=== PATIENT | female | born 1935 | race Two or more races ===

== ENCOUNTER 2021-01-31 10:45 | Inpatient (IN) | payer MEDICAID ==
[~2021-01-31] VITALS: Ht 157.5 cm; Wt 59.0 kg
[2021-01-31] MEDS ORDERED: AZITHROMYCIN 500MG/ 250ML 250 ML IV ONE (11:45)
[2021-01-31 11:54] LABS: Basophils # (auto) 0.1 10 ^3/uL (0-0.2); Lymphocytes # (auto) 1.1 10 ^3/uL (0.4-5.4)
[2021-01-31 11:57] LABS: Basophils % (auto) 0.8 % (0.0-2.0); Eosinophils # (auto) 0 10 ^3/uL (0-0.8); Eosinophils % (auto) 0.3 % (0.0-7.0); Hematocrit 32.6 % (36.0-46.0); Lymphocytes % (auto) 7.4 % (10.0-50.0); Mean Corpuscular Hemoglobin 26.9 pg (28.0-32.0); Mean Corpuscular Hgb Conc. 33.9 g/dL (32.0-36.0); Mean Corpuscular Volume 79.4 fL (80.0-100.0); Monocytes # (auto) 1.4 10 ^3/uL (0-1.3); Monocytes % (auto) 9.5 % (0.0-12.0); Neutrophils # (auto) 12.5 10 ^3/uL (1.6-8.6); Platelet Count (auto) 502 10^3/uL (140-450); Red Blood Cells 4.11 10^6/uL (4.0-5.20); Red Cell Distribution Width 15.3 % (11.8-14.3); White Blood Cell 15.3 10^3/uL (4.4-10.8)
[2021-01-31 12:15] LABS: Albumin 2.6 g/dL (3.4-5.0); Anion Gap 9 (5-15); Blood Urea Nitrogen 21 mg/dL (7-18); Calcium 9.9 mg/dL (8.5-10.1); Carbon Dioxide 27 mmol/L (21-32); Chloride 94 mmol/L (98-107); Sodium 130 mmol/L (136-145)
[2021-01-31 12:23] LABS: Alanine Aminotransferase 19 U/L (13-56); Alkaline Phosphatase 107 U/L (45-117); Aspartate Aminotransferase 23 U/L (15-37); BUN/Creatinine Ratio 36.8; Bilirubin, Total 0.5 mg/dL (0.2-1.0); GFR African American 130 mL/min; GFR Non-African American 108 mL/min; Glucose 109 mg/dL (74-106); Total Protein 7.7 g/dL (6.4-8.2)
[2021-01-31] MEDS ORDERED: ZINC SULFATE 220mg CAP or TAB PO ONE (13:15)
[2021-01-31] MEDS ORDERED: methylPREDNISolone SOD SUCC 125 MG/2 ML VL IV ONE (13:15)
[2021-01-31] MEDS ORDERED: ONDANSETRON HCL 4 MG/2 ML VIAL IV PRN (13:30)
[2021-01-31] MEDS ORDERED: MORPHINE SULF INJ 2 MG/ML SYRINGE 1ML IV PRN (13:30)
[2021-01-31] MEDS ORDERED: NITROGLYCERIN 0.4 MG SL TAB SL PRN (13:30)
[2021-01-31] MEDS ORDERED: PNEUMOCOCCAL VACC POLYS 25 MCG/0.5 ML VIAL IM ONE (18:30)
[2021-01-31] MEDS ORDERED: ENAL2.5T7 PO (18:30)
[2021-01-31] MEDS ORDERED: HYDR25TA4 PO (18:30)
[2021-01-31] MEDS ORDERED: INFLUENZA QUAD 2020-2021 0.5 ML SYRG IM ONE (18:30)
[2021-01-31] MEDS ORDERED: guaiFENesin 200 MG/10 ML UD PO PRN (21:00)
[2021-01-31] MEDS: ASCORBIC ACID 500 MG TAB PO SCH (21:25)
[2021-01-31] MEDS: ACETAMINOPHEN 325 MG TAB PO PRN (21:25)
[2021-01-31 22:00] VITALS: BP 124/75
[2021-02-01 05:20] VITALS: BP 122/75
[2021-02-01 06:48] LABS: Basophils # (auto) 0 10 ^3/uL (0-0.2); Basophils % (auto) 0.1 % (0.0-2.0); Eosinophils # (auto) 0 10 ^3/uL (0-0.8); Lymphocytes # (auto) 0.9 10 ^3/uL (0.4-5.4); Neutrophils # (auto) 10.8 10 ^3/uL (1.6-8.6); White Blood Cell 12.4 10^3/uL (4.4-10.8)
[2021-02-01 06:50] LABS: Hematocrit 29.9 % (36.0-46.0); Lymphocytes % (auto) 7.2 % (10.0-50.0); Mean Corpuscular Hemoglobin 26.3 pg (28.0-32.0); Mean Corpuscular Hgb Conc. 33.5 g/dL (32.0-36.0); Mean Corpuscular Volume 78.6 fL (80.0-100.0); Monocytes # (auto) 0.6 10 ^3/uL (0-1.3); Monocytes % (auto) 5.2 % (0.0-12.0); Neutrophils % (auto) 87.5 % (37.0-80.0); Platelet Count (auto) 453 10^3/uL (140-450); Red Blood Cells 3.81 10^6/uL (4.0-5.20); Red Cell Distribution Width 15.4 % (11.8-14.3)
[2021-02-01 07:08] LABS: Calcium 9.3 mg/dL (8.5-10.1); Magnesium 2.4 mg/dL (1.6-2.6); Potassium 4.1 mmol/L (3.5-5.1)
[2021-02-01 07:10] LABS: BUN/Creatinine Ratio 53.2
[2021-02-01 09:00] VITALS: BP 133/71
[2021-02-01] MEDS ORDERED: DexAMETHasone SOD PHOS 4 MG/1ML SDV INJ IV SCH (10:00)
[2021-02-01 10:50] LABS: INR 1.09 (0.9-1.15)
[2021-02-01] MEDS: AZITHROMYCIN 500MG/ 250ML 250 ML IV SCH (11:41)
[2021-02-01] MEDS: ZINC SULFATE 220mg CAP or TAB PO SCH (11:41)
[2021-02-01] MEDS: ASCORBIC ACID 500 MG TAB PO SCH ×2 (11:42→21:08)
[2021-02-01] MEDS: CHOLECALCIFEROL (VITD3) 2,000 UNIT CAP/TAB PO SCH (11:42)
[2021-02-01] MEDS: ENOXAPARIN SOD 40 MG/0.4 ML SYRINGE SC SCH (11:42)
[2021-02-01 12:50] VITALS: BP 129/78
[2021-02-01] MEDS: HYDROcodone-ACET 5/325MG TAB PO PRN (14:13)
[2021-02-01 14:14] LABS: Urine Bacteria FEW /hpf (None Seen); Urine Blood Negative /uL (Negative); Urine Specific Gravity 1.016 (1.001-1.035); Urine WBC 1 /hpf (0 - 5)
[2021-02-01 17:00] VITALS: BP 110/66
[2021-02-01] MEDS: ACETAMINOPHEN 325 MG TAB PO PRN (21:08)
[2021-02-01 22:00] VITALS: BP 121/72
[2021-02-01] MEDS ORDERED: LORazepam 2MG/ML-1ML VIAL IV PRN (22:45)
[2021-02-02 05:00] VITALS: BP 119/68
[2021-02-02 07:23] LABS: Cholesterol 120 mg/dL (< 200)
[2021-02-02 07:27] LABS: HDL Cholesterol 54 mg/dL (40-59); LDL Cholesterol 59 mg/dL (< 100); Triglycerides 90 mg/dL (< 150)
[2021-02-02] MEDS ORDERED: LIDOCAINE 2%HCL (LOCAL ANESTH.) INJ 20ML MDV ONE (08:32)
[2021-02-02 09:00] VITALS: BP 114/70
[2021-02-02] MEDS ORDERED: fentaNYL CITRATE 100 MCG/2 ML VL ONE (09:40)
[2021-02-02] MEDS: ENOXAPARIN SOD 40 MG/0.4 ML SYRINGE SC SCH (09:49)
[2021-02-02] MEDS: ASPirin-EC 81 mg tab PO SCH (09:50)
[2021-02-02] MEDS ORDERED: fentaNYL CITRATE 100 MCG/2 ML VL IV ONE (10:00)
[2021-02-02] MEDS: ZINC SULFATE 220mg CAP or TAB PO SCH (11:01)
[2021-02-02] MEDS: AZITHROMYCIN 500MG/ 250ML 250 ML IV SCH (11:01)
[2021-02-02] MEDS: CHOLECALCIFEROL (VITD3) 2,000 UNIT CAP/TAB PO SCH (11:02)
[2021-02-02] MEDS: ASCORBIC ACID 500 MG TAB PO SCH ×2 (11:02→21:11)
[2021-02-02 13:00] VITALS: BP 147/78
[2021-02-02 17:00] VITALS: BP 133/85
[2021-02-02] MEDS: ACETAMINOPHEN 325 MG TAB PO PRN (19:37)
[2021-02-02] MEDS: MORPHINE SULF INJ 2 MG/ML SYRINGE 1ML IV PRN (21:09)
[2021-02-02 22:00] VITALS: BP 127/72
[2021-02-02 23:34] LABS: Potassium 4.2 mmol/L (3.5-5.1)
[2021-02-03 05:00] VITALS: BP 122/72
[2021-02-03 08:00] VITALS: BP 124/66
[2021-02-03] MEDS: ZINC SULFATE 220mg CAP or TAB PO SCH (11:43)
[2021-02-03] MEDS: AZITHROMYCIN 500MG/ 250ML 250 ML IV SCH (11:43)
[2021-02-03] MEDS: CHOLECALCIFEROL (VITD3) 2,000 UNIT CAP/TAB PO SCH (11:44)
[2021-02-03] MEDS: ASPirin-EC 81 mg tab PO SCH (11:44)
[2021-02-03] MEDS: ASCORBIC ACID 500 MG TAB PO SCH ×2 (11:44→22:42)
[2021-02-03] MEDS: ENOXAPARIN SOD 40 MG/0.4 ML SYRINGE SC SCH (11:46)
[2021-02-03] MEDS: MORPHINE SULF INJ 2 MG/ML SYRINGE 1ML IV PRN (11:46)
[2021-02-03 12:00] VITALS: BP 130/75
[2021-02-03 16:00] VITALS: BP 131/78
[2021-02-03] MEDS: HYDROcodone-ACET 5/325MG TAB PO PRN (20:52)
[2021-02-03 22:00] VITALS: BP 115/69
[2021-02-04 05:00] VITALS: BP 147/80
[2021-02-04 09:00] VITALS: BP 118/71
[2021-02-04] MEDS: ASCORBIC ACID 500 MG TAB PO SCH (10:21)
[2021-02-04] MEDS: ZINC SULFATE 220mg CAP or TAB PO SCH (10:21)
[2021-02-04] MEDS: CHOLECALCIFEROL (VITD3) 2,000 UNIT CAP/TAB PO SCH (10:21)
[2021-02-04] MEDS: ASPirin-EC 81 mg tab PO SCH (10:21)
[2021-02-04] MEDS: ENOXAPARIN SOD 40 MG/0.4 ML SYRINGE SC SCH (10:21)
[2021-02-04] MEDS: AZITHROMYCIN 500MG/ 250ML 250 ML IV SCH (10:21)
[2021-02-04] MEDS: MORPHINE SULF INJ 2 MG/ML SYRINGE 1ML IV PRN (10:22)
[2021-02-04 13:00] VITALS: BP 118/67
[2021-02-04 16:10] VITALS: BP 118/67
[2021-02-04 17:00] VITALS: BP 120/62
== END 2021-02-04 17:55 | disposition home health service (06) | DRG 139 ==
LOC: ER 10:45 → TELE 13:21 → TELE-EAST 17:36
PROVIDERS: ADMIT Internal Medicine; ATTEND Internal Medicine
PROC: 0WB Anatomical Regions, General, Excision (ICD-10-PCS; principal; 2021-02-02)
DX: J18.9 Pneumonia, unspecified organism (principal); E88.09 Other disorders of plasma-protein metabolism, not elsewhere classified; C34.92 Malignant neoplasm of unspecified part of left bronchus or lung; E87.1 Hypo-osmolality and hyponatremia; F17.200 Nicotine dependence, unspecified, uncomplicated; D72.829 Elevated white blood cell count, unspecified; I10 Essential (primary) hypertension; J45.909 Unspecified asthma, uncomplicated; M19.90 Unspecified osteoarthritis, unspecified site; Z20.822 Contact with and (suspected) exposure to COVID-19; Z79.82 Long term (current) use of aspirin; Z79.899 Other long term (current) drug therapy; Z82.49 Family history of ischemic heart disease and other diseases of the circulatory system; M54.2 Cervicalgia; M25.512 Pain in left shoulder; G89.29 Other chronic pain; R59.0 Localized enlarged lymph nodes
CPT/HCPCS: 36415; 70450; 71046; 71250; 76881; 76942; 80048; 80053; 80061; 81001; 82728; 83605; 83735; 84132; 84484; 85025; 85610; 86141; 87040; 87426; 93005; 93306; 93886; 96365; 96375; 97116; G0378

== ENCOUNTER 2021-02-23 22:43 | Inpatient (IN) | payer MEDICAID ==
[~2021-02-23] VITALS: Ht 157.5 cm; Wt 62.6 kg
[~2021-02-23 22:43] MED LIST: ENAL2.5T7 PO; HYDR25TA4 PO
[2021-02-23] MEDS ORDERED: SODIUM CHLORIDE 0.9% 500 ML IV ONE (23:15)
[2021-02-23 23:26] LABS: Basophils # (auto) 0.1 10 ^3/uL (0-0.2); Hemoglobin 11.4 g/dL (12.2-16.2); Lymphocytes # (auto) 1.9 10 ^3/uL (0.4-5.4); Nucleated Red Blood Cells % 0.1 %
[2021-02-23 23:27] LABS: Basophils % (auto) 0.3 % (0.0-2.0); Eosinophils # (auto) 0.1 10 ^3/uL (0-0.8); Eosinophils % (auto) 0.7 % (0.0-7.0); Hematocrit 35.4 % (36.0-46.0); Lymphocytes % (auto) 8.5 % (10.0-50.0); Mean Corpuscular Hemoglobin 25.8 pg (28.0-32.0); Mean Corpuscular Hgb Conc. 32.2 g/dL (32.0-36.0); Monocytes # (auto) 0.7 10 ^3/uL (0-1.3); Monocytes % (auto) 3.1 % (0.0-12.0); Neutrophils # (auto) 19.8 10 ^3/uL (1.6-8.6); Neutrophils % (auto) 87.4 % (37.0-80.0); Red Blood Cells 4.42 10^6/uL (4.0-5.20); White Blood Cell 22.6 10^3/uL (4.4-10.8)
[2021-02-23] MEDS ORDERED: cefTRIAXone 1GM/50ML D5W 50 ML IV ONE (23:30)
[2021-02-23 23:41] LABS: INR 1.13 (0.9-1.15); Partial Thromboplastin Time 23.4 sec (23.0-31.2)
[2021-02-23 23:47] LABS: BUN/Creatinine Ratio 61.3; Calcium 9.9 mg/dL (8.5-10.1); Potassium 4.6 mmol/L (3.5-5.1)
[2021-02-23 23:50] LABS: Bilirubin, Total 0.5 mg/dL (0.2-1.0); Total Protein 7.4 g/dL (6.4-8.2)
[2021-02-23] MEDS ORDERED: MIDAZOLAM DRIP 50 mg/50mL 0 ML IV ONE (23:57)
[2021-02-23] MEDS ORDERED: ETOMIDATE (2MG/ML) 20ML VIAL IV ONE (23:58)
[2021-02-23] MEDS ORDERED: SUCCINYLCHOLINE CHLORIDE 20 MG/ML 10ML VIAL IV ONE (23:58)
[2021-02-24] VITALS (58 sets, daily range): BP systolic 88–128; BP diastolic 37–83
[2021-02-24] MEDS ORDERED: SODIUM CHLORIDE 0.9% 500 ML IV ONE ×2 (00:15)
[2021-02-24 00:32] LABS: Lactic Acid w/Reflex 6.4 mmol/L (0.4-2.0)
[2021-02-24] MEDS: NOREPINEPHRINE 8 MG/250ML KIT 250 ML IV SCH ×2 (00:47→03:59)
[2021-02-24] MEDS ORDERED: HYDROCORTISONE SOD SUCC 100 MG/2ML INJ VIAL IV ONE (01:00)
[2021-02-24] MEDS ORDERED: SODIUM CHLORIDE 0.9% 1,000 ML IV ONE (01:15)
[2021-02-24] MEDS ORDERED: VANCOMYCIN 1GM/250ML 250 ML IV ONE ×2 (01:30→05:00)
[2021-02-24] MEDS ORDERED: MORPHINE SULFATE 4 MG/ML SYR/VIAL IV ONE (04:00)
[2021-02-24] MEDS ORDERED: AMIODARONE HCL (50 MG/ ML) 3 ML VIAL IV ONE (04:43)
[2021-02-24] MEDS ORDERED: ALBUMIN 5% 250 ML IV ONE (04:45)
[2021-02-24] MEDS ORDERED: ONDANSETRON HCL 4 MG/2 ML VIAL IV PRN (04:45)
[2021-02-24] MEDS ORDERED: VANCOMYCIN PER PHARMACY 0 MG IV SCH (04:45)
[2021-02-24] MEDS ORDERED: NITROGLYCERIN 0.4 MG SL TAB SL PRN (04:45)
[2021-02-24] MEDS ORDERED: MORPHINE SULFATE INJECTION 2 MG/ML SYRG IV PRN (04:45)
[2021-02-24] MEDS ORDERED: ALBUTEROL SULF 2.5 MG/0.5ML(0.5%) NEB SOLN NEB PRN (04:45)
[2021-02-24] MEDS ORDERED: AMIODARONE HCL 150 MG in D5W 5% 100 ML IV ONE (04:45)
[2021-02-24] MEDS: PIPERACILLIN-TAZOB 3.375GM 100 ML IV SCH ×3 (06:00→18:06)
[2021-02-24] MEDS ORDERED: AMIODARONE 450mg/250ml AE 250 ML IV ONE (06:12)
[2021-02-24] MEDS ORDERED: AMIODARONE 450mg/250ml AE 250 ML IV SCH ×2 (06:30→12:30)
[2021-02-24 08:13] LABS: Mean Corpuscular Hgb Conc. 32.1 g/dL (32.0-36.0)
[2021-02-24 08:18] LABS: Hematocrit 30.9 % (36.0-46.0); Hemoglobin 9.9 g/dL (12.2-16.2); Mean Corpuscular Hemoglobin 25.4 pg (28.0-32.0); Mean Corpuscular Volume 79.1 fL (80.0-100.0)
[2021-02-24 08:27] LABS: White Blood Cell 37.3 10^3/uL (4.4-10.8)
[2021-02-24 08:28] LABS: Basophils % (manual) 0 (0.0-2.0); Blast Cells 0; Eosinophils % (manual) 0 (0-7); Lactic Acid w/Reflex 2.7 mmol/L (0.4-2.0); Metamyelocytes % 0; Myelocytes % 0; Potassium 3.8 mmol/L (3.5-5.1); Promyelocytes % 0; Reactive Lymphocytes 0
[2021-02-24 09:32] LABS: Band Neutrophils % (manual) 6; Lymphocytes % (manual) 1 (10.0-50.0); Monocytes % (manual) 2 (0-12)
[2021-02-24] MEDS: DexAMETHasone SOD PHOS 10MG/1ML VIAL INJ IV SCH (10:23)
[2021-02-24] MEDS: SODIUM CHLORIDE 0.9% 1,000 ML IV SCH ×2 (10:23→15:18)
[2021-02-24] MEDS: ENOXAPARIN SOD 40 MG/0.4 ML SYRINGE SC SCH (10:23)
[2021-02-24] MEDS: FAMOTIDINE 20 MG TAB PO SCH (10:23)
[2021-02-24] MEDS: VANCOMYCIN 1GM/250ML 250 ML IV SCH (18:06)
[2021-02-24] MEDS ORDERED: ACETAMINOPHEN 325 MG TAB PO PRN (18:15)
[2021-02-24] MEDS: LACTULOSE 20Gm/30ML SOLN PO SCH (22:51)
[2021-02-25] VITALS (27 sets, daily range): BP systolic 85–128; BP diastolic 36–67
[2021-02-25] MEDS: SODIUM CHLORIDE 0.9% 1,000 ML IV SCH ×2 (04:17→16:03)
[2021-02-25 04:24] LABS: Hematocrit 27.2 % (36.0-46.0); Hemoglobin 8.5 g/dL (12.2-16.2); Mean Corpuscular Hgb Conc. 31.4 g/dL (32.0-36.0); Mean Corpuscular Volume 79.8 fL (80.0-100.0); Red Blood Cells 3.41 10^6/uL (4.0-5.20); Red Cell Distribution Width 16.2 % (11.8-14.3)
[2021-02-25 04:29] LABS: White Blood Cell 30.3 10^3/uL (4.4-10.8)
[2021-02-25 04:31] LABS: Basophils % (manual) 0 (0.0-2.0); Blast Cells 0; Eosinophils % (manual) 0 (0-7); Metamyelocytes % 0; Myelocytes % 0; Promyelocytes % 0; Reactive Lymphocytes 0
[2021-02-25 04:35] LABS: Albumin 1.8 g/dL (3.4-5.0); Calcium 8.8 mg/dL (8.5-10.1); Potassium 3.6 mmol/L (3.5-5.1)
[2021-02-25 04:37] LABS: Bilirubin, Total 0.4 mg/dL (0.2-1.0); Total Protein 6.2 g/dL (6.4-8.2)
[2021-02-25 04:52] LABS: Band Neutrophils % (manual) 6; Lymphocytes % (manual) 10 (10.0-50.0); Monocytes % (manual) 2 (0-12)
[2021-02-25] MEDS: PIPERACILLIN-TAZOB 3.375GM 100 ML IV SCH ×5 (06:00→23:34)
[2021-02-25] MEDS: LACTULOSE 20Gm/30ML SOLN PO SCH ×2 (09:32→22:24)
[2021-02-25] MEDS: ENOXAPARIN SOD 40 MG/0.4 ML SYRINGE SC SCH (09:32)
[2021-02-25] MEDS: FAMOTIDINE 20 MG TAB PO SCH (09:32)
[2021-02-25] MEDS: DexAMETHasone SOD PHOS 10MG/1ML VIAL INJ IV SCH (09:32)
[2021-02-25] MEDS: VANCOMYCIN 1GM/250ML 250 ML IV SCH (12:51)
[2021-02-25] MEDS: AMIODARONE HCL 200 MG TAB PO SCH (14:01)
[2021-02-25] MEDS: Ensure Enlive Chocolate 8oz Bottle PO SCH (18:00)
[2021-02-26] VITALS (7 sets, daily range): BP systolic 115–160; BP diastolic 61–90
[2021-02-26] MEDS: SODIUM CHLORIDE 0.9% 1,000 ML IV SCH ×2 (00:23→17:21)
[2021-02-26] MEDS: PIPERACILLIN-TAZOB 3.375GM 100 ML IV SCH ×4 (05:59→23:20)
[2021-02-26 06:36] LABS: Hematocrit 25.7 % (36.0-46.0); Hemoglobin 8.5 g/dL (12.2-16.2); Mean Corpuscular Hemoglobin 25.7 pg (28.0-32.0); Red Blood Cells 3.29 10^6/uL (4.0-5.20); Red Cell Distribution Width 15.8 % (11.8-14.3); White Blood Cell 25.4 10^3/uL (4.4-10.8)
[2021-02-26 06:41] LABS: Basophils % (manual) 0 (0.0-2.0); Blast Cells 0; Eosinophils % (manual) 0 (0-7); Metamyelocytes % 0; Myelocytes % 0; Promyelocytes % 0; Reactive Lymphocytes 0
[2021-02-26 07:04] LABS: Calcium 8.6 mg/dL (8.5-10.1); Potassium 3.7 mmol/L (3.5-5.1)
[2021-02-26] MEDS: Ensure Enlive Chocolate 8oz Bottle PO SCH ×3 (08:00→17:38)
[2021-02-26 08:10] LABS: Band Neutrophils % (manual) 2; Lymphocytes % (manual) 6 (10.0-50.0); Monocytes % (manual) 4 (0-12)
[2021-02-26] MEDS: LACTULOSE 20Gm/30ML SOLN PO SCH ×2 (10:00→21:31)
[2021-02-26] MEDS: VANCOMYCIN 1GM/250ML 250 ML IV SCH (10:15)
[2021-02-26] MEDS: DexAMETHasone SOD PHOS 10MG/1ML VIAL INJ IV SCH (10:17)
[2021-02-26] MEDS: ENOXAPARIN SOD 40 MG/0.4 ML SYRINGE SC SCH (10:18)
[2021-02-26] MEDS: FAMOTIDINE 20 MG TAB PO SCH (10:18)
[2021-02-26] MEDS: AMIODARONE HCL 200 MG TAB PO SCH (10:18)
[2021-02-27] VITALS (7 sets, daily range): BP systolic 135–154; BP diastolic 75–81
[2021-02-27] MEDS: SODIUM CHLORIDE 0.9% 1,000 ML IV SCH (03:21)
[2021-02-27] MEDS: PIPERACILLIN-TAZOB 3.375GM 100 ML IV SCH ×3 (05:17→17:10)
[2021-02-27 05:43] LABS: Hemoglobin 9.1 g/dL (12.2-16.2); Mean Corpuscular Volume 78.3 fL (80.0-100.0); White Blood Cell 24.8 10^3/uL (4.4-10.8)
[2021-02-27 05:46] LABS: Hematocrit 27.8 % (36.0-46.0); Mean Corpuscular Hemoglobin 25.5 pg (28.0-32.0); Mean Corpuscular Hgb Conc. 32.6 g/dL (32.0-36.0); Red Blood Cells 3.55 10^6/uL (4.0-5.20); Red Cell Distribution Width 16.1 % (11.8-14.3)
[2021-02-27 06:08] LABS: Band Neutrophils % (manual) 0; Basophils % (manual) 0 (0.0-2.0); Blast Cells 0; Eosinophils % (manual) 0 (0-7); Metamyelocytes % 0; Myelocytes % 0; Promyelocytes % 0; Reactive Lymphocytes 0
[2021-02-27 06:17] LABS: Calcium 8.6 mg/dL (8.5-10.1); Magnesium 2.3 mg/dL (1.6-2.6); Potassium 3.4 mmol/L (3.5-5.1)
[2021-02-27 06:19] LABS: BUN/Creatinine Ratio 86.8
[2021-02-27 06:55] LABS: Lymphocytes % (manual) 4 (10.0-50.0); Monocytes % (manual) 2 (0-12)
[2021-02-27] MEDS ORDERED: VANCOMYCIN 1GM/250ML 250 ML IV SCH (10:00)
[2021-02-27] MEDS: Ensure Enlive Chocolate 8oz Bottle PO SCH ×3 (10:05→17:17)
[2021-02-27] MEDS: LACTULOSE 20Gm/30ML SOLN PO SCH ×2 (10:06→22:07)
[2021-02-27] MEDS: FAMOTIDINE 20 MG TAB PO SCH (10:06)
[2021-02-27] MEDS: DexAMETHasone SOD PHOS 10MG/1ML VIAL INJ IV SCH (10:06)
[2021-02-27] MEDS: ENOXAPARIN SOD 40 MG/0.4 ML SYRINGE SC SCH (10:07)
[2021-02-27] MEDS: AMIODARONE HCL 200 MG TAB PO SCH (10:07)
[2021-02-27] MEDS: POTASSIUM CHL 20MEQ/100ML 100 ML IV SCH ×2 (12:11→14:03)
[2021-02-27] MEDS: D5W/SOD CHLO 0.9% 1,000 ML IV SCH (14:03)
[2021-02-28] MEDS: PIPERACILLIN-TAZOB 3.375GM 100 ML IV SCH ×3 (00:16→11:36)
[2021-02-28] MEDS: D5W/SOD CHLO 0.9% 1,000 ML IV SCH ×2 (01:35→14:32)
[2021-02-28 05:00] VITALS: BP 141/70
[2021-02-28 09:00] VITALS: BP 151/81
[2021-02-28] MEDS: AMIODARONE HCL 200 MG TAB PO SCH (10:13)
[2021-02-28] MEDS: DexAMETHasone SOD PHOS 10MG/1ML VIAL INJ IV SCH (10:13)
[2021-02-28] MEDS: ENOXAPARIN SOD 40 MG/0.4 ML SYRINGE SC SCH (10:13)
[2021-02-28] MEDS: FAMOTIDINE 20 MG TAB PO SCH (10:13)
[2021-02-28] MEDS: LACTULOSE 20Gm/30ML SOLN PO SCH (10:13)
[2021-02-28] MEDS: Ensure Enlive Chocolate 8oz Bottle PO SCH ×2 (10:13→12:00)
[2021-02-28 12:36] VITALS: BP 137/73
[2021-02-28 13:05] VITALS: BP 137/73
[2021-02-28 16:58] VITALS: BP 132/69
== END 2021-02-28 17:00 | disposition hospice, inpatient (51) | DRG 720 ==
LOC: ER 22:43 → EDBD 22:43 → TELE 02-24 04:33 → ICU WEST 02-24 05:44 → TELE-EAST 02-25 21:55
PROVIDERS: ADMIT Nurse Practitioner; ATTEND Internal Medicine
PROC: 02HV33Z Insertion of Infusion Device into Superior Vena Cava, Percutaneous Approach (ICD-10-PCS; principal; 2021-02-24)
DX: A41.89 Other specified sepsis (principal); U07.1 COVID-19; E43 Unspecified severe protein-calorie malnutrition; J69.0 Pneumonitis due to inhalation of food and vomit; J96.01 Acute respiratory failure with hypoxia; R65.21 Severe sepsis with septic shock; E87.2 Acidosis; I48.0 Paroxysmal atrial fibrillation; J12.82 Pneumonia due to coronavirus disease 2019; Z66 Do not resuscitate; C16.9 Malignant neoplasm of stomach, unspecified; J98.11 Atelectasis; M19.90 Unspecified osteoarthritis, unspecified site; I10 Essential (primary) hypertension; M75.00 Adhesive capsulitis of unspecified shoulder; Z51.5 Encounter for palliative care; Z78.9 Other specified health status; Z68.20 Body mass index [BMI] 20.0-20.9, adult; I69.354 Hemiplegia and hemiparesis following cerebral infarction affecting left non-dominant side
CPT/HCPCS: 36415; 36600; 71045; 73020; 80048; 80053; 80202; 82805; 83605; 83735; 84484; 85007; 85025; 85027; 85379; 85610; 85730; 87040; 87081; 87426; 93005; 96361; 96365; 96375; 99291; G0378; J0330; J0696; J1100; J2250; J2543; J3480; J7042; J7060